=== PATIENT | female | born 1955 | race American Indian/Alaskan Native ===

== ENCOUNTER 2017-03-18 12:44 | Outpatient (CLI) | payer OTHER ==
--- NOTE | 2017-03-18 16:18 | Mammography Report ---
BILATERAL DIGITAL SCREENING MAMMOGRAM with CAD: 03/18/17 12:44:00 CLINICAL: Routine screening. COMPARISON:02/01/16 FINDINGS: The breasts are mostly fatty with a few bilateral residual fibroglandular densities. No mass, architectural distortion or suspicious calcifications. IMPRESSION: No mammographic evidence of malignancy. BI-RADS CATEGORY: 1 - - Negative RECOMMENDATION: Routine mammographic screening in one year. COMMENT: Patient follow-up letters are generated by our [employer] application.
== END 2017-03-18 12:45 | disposition home or self-care (01) ==
LOC: SPVWC 12:44
PROVIDERS: ATTEND Obstetrics & Gynecology
DX: Z12.31 Encounter for screening mammogram for malignant neoplasm of breast (principal)
CPT/HCPCS: 77067; G0202

== ENCOUNTER 2018-05-14 14:23 | Outpatient (CLI) | payer OTHER ==
--- NOTE | 2018-05-14 15:09 | Mammography Report ---
BILATERAL MAMMOGRAM: FINDINGS: The breast tissue is heterogeneously dense, which could obscure detection of small masses (approximately 50%-75% glandular). No mass, distortion, suspicious calcification, or skin change is seen. When compared to prior exams dating back to January 2016 and no significant change is identified. CAD was utilized. IMPRESSION: Negative mammogram. There is no mammographic evidence of malignancy. RECOMMENDATION: Follow-up per ACS guidelines. BI-RADS CATEGORY: 1 = Negative ACR BI-RADS MAMMOGRAPHIC CODES: 0 = Needs additional imaging evaluation; 1 = Negative; 2 = Benign; 3 = Probably benign; 4 = Suspicious; 5 = Malignant; 6 = Known biopsy-proven malignancy COMMENT: 1. Dense breast tissue, i.e., adenosis, fibrocystic changes, etc., may obscure an underlying neoplasm. 2. Approximately 10% of cancers are not detected with mammography. 3. A negative mammography report should not delay biopsy if a clinically suspicious mass is present. COMMENT: Patient follow-up letters are generated in [employer].
== END 2018-05-14 14:24 | disposition home or self-care (01) ==
LOC: SPVWC 14:23
PROVIDERS: ATTEND Obstetrics & Gynecology
DX: Z12.31 Encounter for screening mammogram for malignant neoplasm of breast (principal)
CPT/HCPCS: 77067

== ENCOUNTER 2018-07-23 05:57 | Day surgery (SDC) | payer OTHER ==
[2018-07-23] MEDS ORDERED: NACL BACTERIOSTATIC INFILTRATI ONE (06:38)
[2018-07-23] MEDS ORDERED: VERSED IV NR (06:54)
[2018-07-23] MEDS ORDERED: LACTATED RINGERS 1,000 ML IV SCH (07:00)
[2018-07-23] MEDS ORDERED: PEPCID IV NR (07:00)
[2018-07-23] MEDS ORDERED: SUBLIMAZE ONE (07:24)
[2018-07-23] MEDS ORDERED: DIPRIVAN 10 MG/ML IV ONE (07:24)
[2018-07-23] MEDS ORDERED: TORADOL ONE (07:25)
[2018-07-23] MEDS ORDERED: XYLOCAINE MPF 2% ONE (07:25)
[2018-07-23] MEDS ORDERED: DECADRON ONE (07:25)
[2018-07-23] MEDS ORDERED: ZOFRAN ONE (07:25)
[2018-07-23 07:30] LABS: Hematocrit 41.3 % (30.3-42.9); Hemoglobin 13.7 gm/dl (10.1-14.3)
[2018-07-23] MEDS ORDERED: SUBLIMAZE IV PRN (07:32)
--- NOTE | 2018-07-23 07:32 | Anesthesia Day of Surgery ---
Anesthesia Day of Surgery - Day of Surgery Patient Examined: Yes Patient H&P Reviewed: Yes Patient is NPO: Yes
--- NOTE | 2018-07-23 07:32 | Anesthesia Consultation ---
Anesthesia Consult and Med Hx Date of service: 07/23/18 - Airway Anesthetic Teeth Evaluation: Good ROM Head & Neck: Adequate Mental/Hyoid Distance: Adequate Mallampati Class: Class II Intubation Access Assessment: Probably Good - Pulmonary Exam CTA: Yes - Cardiac Exam Cardiac Exam: RRR - Pre-Operative Health Status ASA Pre-Surgery Classification: ASA2 Proposed Anesthetic Plan: General - Pulmonary Hx Smoking: No Hx Respiratory Symptoms: No Hx Sleep Apnea: No - Cardiovascular System Hx Hypertension: No Hx Heart Attack/AMI: No Hx Cardia Arrhythmia: No - Central Nervous System CVA: No - Gastrointestinal Hx Gastroesophageal Reflux Disease: Yes (s/p dilations. Asymptomatic today. ) - Endocrine Hx Renal Disease: No Hx Liver Disease: No Hx Insulin Dependent Diabetes: No Hx Non-Insulin Dependent Diabetes: No Hx Thyroid Disease: No - Other Systems Hx Obesity: No - Additional Comments Anesthesia Medical History Comments: No prior GA and no FHx anesthetic complications.
[2018-07-23] MEDS ORDERED: SILVER NITRATE TP ONE (07:38)
--- NOTE | 2018-07-23 07:57 | Short Stay Summary ---
Short Stay Documentation Date of service: 07/23/18 Narrative H&P: patient is a 62 year old female who presents today for dilation and curretage secondary to postmenopausal bleeding. EMB was attempted in office but was unsuccessful. - History H&P: obtained from office Past Medical History: No medical history Past Surgical History: appendectomy, Social history: - Allergies and Medications Current Medications: Allergies methocarbamol [From Robaxin] Allergy (Verified 07/16/18 11:55) Swelling, itching Home Medications Medication Instructions Recorded Confirmed Last Taken Type Azelastine HCl 1 spray IH DAILY 07/16/18 07/16/18 Unknown History Dicyclomine [Bentyl] 10 mg PO DAILY 07/16/18 07/16/18 Unknown History Progesterone, Micronized 10 mg PO DAILY 07/16/18 07/16/18 Unknown History [Progesterone] Ranitidine HCl [Zantac] 300 mg PO BID 07/16/18 07/16/18 Unknown History Valacyclovir HCl [Valtrex] 1,000 mg PO DAILY 07/16/18 07/16/18 Unknown History buPROPion XL [Wellbutrin Xl] 150 mg PO QAM 07/16/18 07/16/18 Unknown History traZODone [Desyrel] 25 mg PO QHS 07/16/18 07/16/18 Unknown History Active Medications Famotidine (Pepcid) 20 mg IV PREOP NR Stop: 07/23/18 16:00 Fentanyl (Sublimaze) 50 mcg IV Q5MIN PRN PRN Reason: Pain , Severe (7-10) Stop: 07/23/18 20:00 Lactated Ringer's (Lactated Ringers) 1,000 mls @ 100 mls/hr IV DIRECT VINNY Midazolam HCl (Versed) 2 mg IV ONCE NR Stop: 07/23/18 16:00 - Physical exam General appearance: no acute distress HEENT: Atraumatic Lungs: Clear to auscultation, Normal air movement Breasts: deferred Heart: Regular rate, Normal S1, Normal S2 Gastrointestinal: normal, normoactive bowel sounds Female Genitourinary: deferred Rectal Exam: deferred - Brief post op/procedure progress note Date of procedure: 07/23/18 Pre-op diagnosis: Post menopausal bleeding Post-op diagnosis: same (with endometrial polyps on atrophic uterus) Procedure: D&C hysteroscopy Anesthesia: MAC Findings: Mostly atrophic endometrium with small endometrial polyp Surgeon: LEONARDA DANGELO Estimated blood loss: minimal Pathology: list (smal amount of endometrial currettings) Specimen disposition: to lab Condition: stable - Hospital course Hospital course: unremarkable - Disposition Condition at discharge: Good Disposition: DC- TO HOME OR SELFCARE Short Stay Discharge Plan Activity: advance as tolerated Weight Bearing Status: Weight Bear as Tolerated Diet: regular Follow up with: LEONARDA DANGELO MD [Staff Physician] - 14 Days Prescriptions: HYDROcodone/ACETAMINOPHEN [Vanderbilt 5-325 Tablet] 1 each PO Q4H #28 tablet traMADol [Ultram 50 MG tab] 50 mg PO Q6HR PRN #20 tablet PRN Reason: Pain
[2018-07-23] MEDS ORDERED: NACL 0.9% IR ONE (08:39)
[2018-07-23] MEDS ORDERED: BENADRYL IV NR (09:30)
[2018-07-23 10:01] VITALS: BP 129/55
[2018-07-23] MEDS ORDERED: ZOFRAN IV PRN (10:30)
--- NOTE | 2018-08-12 10:01 | Operative Report ---
Operative Report Operative Report: Preoperative diagnoses: Postmenopausal bleeding Postoperative diagnosis: Same Procedure: D and C with hysteroscopy Surgeon: Arabella Acevedo M.D. Anesthesia: MAC EBL: Minimal Urine output: 100 mL clear Complications: None Specimens: Endometrial and endocervical curettings Procedure: Patient was taken to the OR with IV running and in place. She will probably identified as herself. She was given adequate anesthesia. She was then placed in the dorsal lithotomy position and prepped and draped in normal st erile fashion. Attention was turned to the patient's vagina. Her bladder was then drained of approximately 100 mL of clear yellow urine. A bivalve speculum was placed the patient's vagina. Cervix was visualized and grasped with a single-tooth tenaculum. The cervix was then gently dilated up to approximately 29 mm. Following this, the hysteroscope was introduced into the cervical canal. The cavity was visualized and there are no abnormalities found except for some small uterine polyps. The hysteroscope was removed and sharp curettage performed for minimal tissue. There was excellent hemostasis noted at the end of this portion of the procedure. At this point all instruments were removed from the patient's vagina. She was then awakened and taken to recovery in stable condition. She tolerated the procedure well
== END 2018-07-23 10:45 | disposition home or self-care (01) ==
LOC: OR 05:57
PROVIDERS: ATTEND Obstetrics & Gynecology
DX: N84.0 Polyp of corpus uteri (principal); N72 Inflammatory disease of cervix uteri; H40.9 Unspecified glaucoma; N95.0 Postmenopausal bleeding; K21.9 Gastro-esophageal reflux disease without esophagitis; F32.9 Major depressive disorder, single episode, unspecified; Z98.890 Other specified postprocedural states; Z79.899 Other long term (current) drug therapy; Z98.42 Cataract extraction status, left eye; Z98.41 Cataract extraction status, right eye; Z86.718 Personal history of other venous thrombosis and embolism; Z98.891 History of uterine scar from previous surgery; Z72.89 Other problems related to lifestyle; Z88.8 Allergy status to other drugs, medicaments and biological substances
CPT/HCPCS: 36415; 58558; 85014; 85018; 88305; A4217; J1100; J1885; J2250; J2405; J2704; J3010; J7120

== ENCOUNTER 2019-06-10 11:05 | Outpatient (CLI) | payer MEDICARE ==
--- NOTE | 2019-06-10 16:22 | Mammography Report ---
DIGITAL SCREENING MAMMOGRAM WITH CAD, 06/10/2019 INDICATION: Routine screening mammography. TECHNIQUE: Digital bilateral 2D mammography was obtained in the craniocaudal and mediolateral obliq ue projections. This examination was interpreted with the benefit of Computer-Aided Detection analysi s. COMPARISON: 05/14/2018 FINDINGS: Breast Density: The breasts are heterogeneously dense, which may obscure small masses. There is no evidence of dominant mass, suspicious calcifications or architectural distortion in eithe r breast. IMPRESSION: No mammographic evidence of malignancy. Follow up recommendation: Routine yearly BI-RADS Category 1: Negative. A "normal" or negative report should not discourage follow up or biopsy of a clinically significant f inding. A written summary of these findings will be mailed to the patient. The patient will be entered into a mammography reporting system which will generate a reminder letter for the patient's next appointmen t at the appropriate interval. The [employer] recommends yearly mammograms starting at age 40 and continuing as l elsy as a woman is in good health. Breast MRI is recommended for women with an approximate 20-25% or greater lifetime risk of breast cancer, including women with a strong family history of breast or ova jayson cancer or who have been treated for Hodgkin's disease. Signer Name: Brent Bowman MD Signed: 06/10/2019 4:18 PM Workstation Name: [id number]
== END 2019-06-10 11:06 | disposition home or self-care (01) ==
LOC: SPVWC 11:05
PROVIDERS: ATTEND Obstetrics & Gynecology
DX: Z12.31 Encounter for screening mammogram for malignant neoplasm of breast (principal)
CPT/HCPCS: 77067

== ENCOUNTER 2020-10-26 14:06 | Outpatient (CLI) | payer MEDICARE ==
--- NOTE | 2020-10-26 15:34 | Mammography Report ---
DIGITAL SCREENING MAMMOGRAM WITH CAD, 10/26/2020 CLINICAL INFORMATION / INDICATION: Routine screening mammography. SCREENING MAMMO TECHNIQUE: Digital bilateral 2D mammography was obtained in the craniocaudal and mediolateral obliqu e projections. This examination was interpreted with the benefit of Computer-Aided Detection analysis . COMPARISON: 03/18/2017 through 06/10/2019. FINDINGS: Breast Density: There are scattered areas of fibroglandular density. No dominant mass, suspicious calcifications, or architectural distortion in either breast. IMPRESSION: No mammographic evidence of malignancy. Follow up recommendation: Routine yearly BI-RADS Category 1: Negative. A "normal" or negative report should not discourage follow up or biopsy of a clinically significant f inding. A written summary of these findings will be mailed to the patient. The patient will be entered into a mammography reporting system which will generate a reminder letter for the patient's next appointmen t at the appropriate interval. The [employer] recommends yearly mammograms starting at age 40 and continuing as l elsy as a woman is in good health. Breast MRI is recommended for women with an approximate 20-25% or greater lifetime risk of breast cancer, including women with a strong family history of breast or ova jayson cancer or who have been treated for Hodgkin's disease. Signer Name: Prudencio Bennett MD Signed: 10/26/2020 3:29 PM Workstation Name: [id number]
== END 2020-10-26 14:07 | disposition home or self-care (01) ==
LOC: SPVWC 14:06
PROVIDERS: ATTEND Obstetrics & Gynecology
DX: Z12.31 Encounter for screening mammogram for malignant neoplasm of breast (principal)
CPT/HCPCS: 77067